=== PATIENT | male | born 1990 | race Two or more races ===

== ENCOUNTER 2021-05-01 09:21 | Emergency (ER) | payer OTHER, SELFPAY ==
[2021-05-01 09:43] VITALS: BP 135/71; PULSE 85; RESP 18; TEMP 36.3; O2SAT 98; BMI 26.4
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
== END 2021-05-01 11:07 | disposition home or self-care (01) ==
PROVIDERS: Emergency Provider Emergency Medicine
DX: S16.1XXA Strain of muscle, fascia and tendon at neck level, initial encounter (principal); V43.62XA Car passenger injured in collision with other type car in traffic accident, initial encounter; Y93.89 Activity, other specified; Y92.414 Local residential or business street as the place of occurrence of the external cause; Y99.9 Unspecified external cause status
CPT/HCPCS: 99282; 99283

== ENCOUNTER 2021-07-25 14:45 | Emergency (ER) | payer OTHER, SELFPAY ==
--- NOTE | ~2021-07-25 | US_ITS ---
EXAMINATION: US SCROTUM CLINICAL INFORMATION: Right-sided testicular pain. COMPARISON: None TECHNIQUE: A sonogram of the scrotum was performed assessing boston-scale appearance and color Doppler flow. Spectral Doppler analysis of the arterial and venous flow were performed in the testes bilaterally. FINDINGS: RIGHT: Right testicle measures 3.9 x 1.9 x 3.2 cm, volume 12.4 mL. No focal testicular parenchymal lesions are visualized. Few punctate calcifications present Spectral Doppler analysis of the arterial and venous flow is normal in the right testis. Right epididymal head is normal in size. There is trace of hydrocele and no varicocele seen. Right epididymal Doppler flow is normal. LEFT: Left testicle measures 3.6 x 1.9 x 1.9 cm, volume 6.9 mL. No focal testicular parenchymal lesions are visualized. Few punctate calcifications present Spectral Doppler analysis of the arterial and venous flow is normal in the left testis. Left epididymal head is normal in size. There is trace of hydrocele but no varicocele is seen. Left epididymal Doppler flow is normal. US/US scrotum doppler IMPRESSION: Trace of hydrocele bilaterally and mild microlithiasis
[2021-07-25 15:24] VITALS: BP 134/72; PULSE 75; RESP 16; TEMP 36.7; O2SAT 99; BMI 26.4
--- NOTE | 2021-07-25 18:57 | ED_ITS ---
HPI - General Adult General Chief complaint: Abdominal Pain Stated complaint: testicular pain Time Seen by Provider: 07/25/21 17:49 Source: patient Mode of arrival: ambulatory Limitations: no limitations History of Present Illness HPI narrative: 30-year-old male came in for evaluation of right testicular pain. Right testicular pain started 3 days ago feels like dull aching pain in the right testicle. Patient declined any trauma to the genital area, patient currently not sexually active, had a recent oral sex with a known partner declined any penile lesion or discharge. About 3 days ago patient was complai mitchel of lower abdominal pain that is resolved about 2 days ago. No fever, no chills, no nausea, no vomiting, no flank pain, no dysuria, no dark or blood in the urine. Never had these symptoms in the past. No significant abdominal pelvic history. Related Data Previous Rx's Medication Instructions Recorded ibuprofen 600 mg tablet 600 mg PO TID PRN #30 tab 05/01/21 methocarbamol 750 mg tablet 750 mg PO TID PRN #30 tab 05/01/21 Allergies Allergy/AdvReac Type Severity Reaction Status Date / Time No Known Allergies Allergy Verified 07/25/21 15:23 Review of Systems Review of Systems: All other systems are reviewed and are negative Constitutional: Reports as per HPI and Reports no additional constitutional complaints Eyes: Reports as per HPI and Reports no additional eye complaints Reports system reviewed and no additional complaints, except as documented Cardiovascular: Reports as per HPI and Reports no additional cardiovascular complaints Respiratory: Reports as per HPI and Reports no additional respiratory complaints Gastrointestinal: Reports as per HPI and Reports no additional gastrointestinal complaints Genitourinary: Reports no additional female genitourinary complaints Musculoskeletal: Reports no additional musculoskeletal complaints Skin/Breast: Reports system reviewed and no additional complaints, except as docu Psychiatric: Reports no additional psychiatric complaints Endocrine: Reports no additional endocrine complaints Hematologic/Lymphatic: Reports no additional hematologic/lymphatic complaints Allergic/Immunologic: Reports no additional allergic/immunologic complaints Reports system reviewed and no additional complaints, except as documented and Reports Abnormal speech present [facility] Social History Social History Advance Directives: No Advance Directives Information Provided: No Physical Exam ED Vital Signs: Vital Signs - 24 hr 07/25/21 15:24 Temperature 98.1 F Pulse Rate 75 Respiratory Rate 16 Blood Pressure 134/72 Pulse Oximetry 99 BMI result Body Mass Index 26.4 Vital signs have been reviewed as appeared to be correct. Blood pressure normal. Heart rate normal. Respiration rate normal. Temperature normal. Oxygen saturation normal. Appearance: Alert. Oriented X3. No acute distress. Head: Normal external exam. Normocephalic. Atraumatic. No Thomason signs noted. No raccoon eyes noted Eyes: PERRLA. EOMI. Conjunctiva and sclera normal. Eyelids normal. ENT: TM's Normal. Pharynx normal. Uvula midline. Moist mucous membranes. No trismus noted. No drooling noted. No muffled voice noted. Neck: Normal inspection. Neck supple. FROM. No adenopathy. Thyroid Normal. No meningeal signs. No neck mass noted. CVS: Normal heart rate and rhythm. Heart sound normal. No murmurs noted. Pulses normal throughout. Respiratory: No respiratory distress. Painless inspiration. Breath sounds normal. No wheezes/rales/rhonchi noted. Chest nontender. No accessory muscle u pablo noted or decreased air movement noted. Abdomen: Soft and nontender. Bowel sounds normal in all 4 quadrants. No distention noted. No organomegaly noted. No visible injury noted. exam: Normal external genitalia inspection, penis has no lesions no rash no ulcers, no urethral discharge, scrotal looks normal to inspection, no redness, no swelling, testicle was nontender to palpation, no palpable mass, intact cremasteric reflex. Back: No CVA tenderness. Full range of motion noted. Skin: Skin warm and dry. Normal skin color. Normal skin turgor. No rashes/lesions/lacerations noted. Extremities: No lower extremity edema. Extremities exhibit normal range of motion. Extremities nontender. Neuro: Oriented X 3. Cranial nerve exam: II-XII are grossly intact No motor deficit. No sensory deficit. Reflexes normal. Course Course Course Narrative: Assessment and plan. 30-year-old male came in with right testicular pain for 3 days, patient declined risk for STD with no clear symptoms of STDs, had unremarkable /abdominal exam, ultrasound shows no acute pathology. Pain has no obvious underlying etiology, patient now feels better no pain. Will discharge with the recommendation of NSAIDs. Medical Decision Making Lab Data Lab results reviewed: Yes I reviewed the patient's lab results. Result diagrams: 07/25/21 20:14 07/25/21 20:14 Labs: Lab Results 07/25/21 07/25/21 07/25/21 Range/Units 20:14 20:14 21:09 WBC 6.9 (4.8-10.8) X10*3/uL RBC 4.88 (4.60-5.80) X10*6/uL Hgb 15.5 (14.0-18.0) g/dl Hct 45.0 (42.0-52.0) % MCV 92.2 (80.0-98.0) fL MCH 31.8 (27.0-33.0) pg MCHC 34.4 (31.0-36.0) g/dl RDW 12.4 (11.0-16.0) % Plt Count 208 (160-400) X10*3/uL MPV 9.9 (9.4-12.4) fL Immature Gran % (Auto) 0.3 (0.0-0.4) % Neut % (Auto) 68.1 (45-73) % Lymph % (Auto) 23.2 (20-40) % [place] % (Auto) 7.2 (2-11) % Eos % (Auto) 0.9 (0-4) % Baso % (Auto) 0.3 (0-2) % Lymph # (Auto) 1.6 (1.2-4.9) X10*3/uL [place] # (Auto) 0.5 (0.1-1.2) X10*3/uL Eos # (Auto) 0.1 (0.0-0.4) X10*3/uL Baso # (Auto) 0.0 (0.0-0.2) X10*3/uL Abs Immat Gran (auto) 0.02 (0.00-0.03) X10*3/uL Absolute Neuts (auto) 4.7 (2.0-8.3) x10*3/uL Absolute Nucleated RBC 0.000 (0.0-0.012) X10*3/uL Nucleated RBC % (auto) 0.0 (0.0-0.2) /100WBC Sodium 136 (135-145) mmol/L Potassium 4.3 (3.3-5.1) mmol/L Chloride 102 (96-108) mmol/L Carbon Dioxide 25 (22-29) mmol/L Anion Gap 13 (12-20) BUN 15 (9-16) mg/dL Creatinine 1.05 (0.5-1.4) mg/dL Estim Creat Clear Calc 111.5 Estimated GFR > 60 Random Glucose 90 (60-115) mg/dL Calcium 10.1 (8.4-10.2) mg/dL Total Bilirubin 0.7 (0.0-1.0) mg/dL AST 18 (5-37) U/L ALT 12 (0-40) U/L Alkaline Phosphatase 97 (39-117) U/L Total Protein 8.1 H (6.5-8.0) g/dL Albumin 4.5 (3.5-5.0) g/dL Urine Color YELLOW Urine Appearance CLEAR Urine pH 6.0 (5.0-8.0) Ur Specific [place] 1.025 (1.005-1.025) Urine Protein TRACE (NEG-TRACE) MG/DL Urine Glucose (UA) NEG (NEG) MG/DL Urine Ketones >=80 (NEG) MG/DL Urine Blood NEG (NEG) Urine Nitrite NEG (NEG) Ur Leukocyte Esterase TRACE H (NEG) Urine RBC 1-4 (0) /HPF Urine WBC 1-4 (0-4) /HPF Ur Squamous Epith Cells 1+ /LPF Urine Bacteria 2+ /LPF Urine Mucus 2+ /LPF Imaging Data Scrotal ultrasound: Attestation: I personally reviewed and interpreted this imaging study as follows: Radiologist's impression: Trace of hydrocele bilaterally and mild microlithiasis. Discharge Plan Discharge Clinical Impression: Pain in testicle Patient Disposition: Home, Self-Care Instructions: Scrotal Pain (ED) Prescriptions: No Action ibuprofen 600 mg tablet 600 mg PO TID PRN (Reason: pain) Qty: 30 0RF methocarbamol 750 mg tablet 750 mg PO TID PRN (Reason: muscle spasm) Qty: 30 0RF Referrals: Isaiah Veloz MD [Physician] - Physician,None [Primary Care Provider] - Stand Alone Forms: Work/School Release
--- NOTE | 2021-07-25 19:11 | PC.NURSE ---
entered room to obtain labs, IV access, and medicate, but patient was not in the room.
[2021-07-25] MEDS: Ibuprofen 600 MG TABLET PO (19:46)
[2021-07-25 20:20] LABS: MANUAL DIFF FLAG NO
[2021-07-25 20:25] LABS: Basophils Percent Auto 0.3 % (0-2); Eosinophils Absolute Auto 0.1 X10*3/uL (0.0-0.4); Eosinophils Percent Auto 0.9 % (0-4); Hemoglobin 15.5 g/dl (14.0-18.0); Imm Gran Abs Auto 0.02 X10*3/uL (0.00-0.03); Imm Gran Pct Auto 0.3 % (0.0-0.4); Lymphocytes Absolute Auto 1.6 X10*3/uL (1.2-4.9); Lymphocytes Percent Auto 23.2 % (20-40); Mean Corpuscular HGB Conc 34.4 g/dl (31.0-36.0); Mean Corpuscular Hemoglobin 31.8 pg (27.0-33.0); Mean Corpuscular Volume 92.2 fL (80.0-98.0); Mean Platelet Volume 9.9 fL (9.4-12.4); Monocytes Absolute Auto 0.5 X10*3/uL (0.1-1.2); Monocytes Percent Auto 7.2 % (2-11); Neutrophils Absolute Auto 4.7 x10*3/uL (2.0-8.3); Neutrophils Percent Auto 68.1 % (45-73); Platelet Count 208 X10*3/uL (160-400); Red Blood Count 4.88 X10*6/uL (4.60-5.80); Red Cell Distribution Width 12.4 % (11.0-16.0); White Blood Count 6.9 X10*3/uL (4.8-10.8)
[2021-07-25 20:40] LABS: Alanine Aminotransferase 12 U/L (0-40); Albumin Level 4.5 g/dL (3.5-5.0); Alkaline Phosphatase 97 U/L (39-117); Anion Gap 13 (12-20); Aspartate Amino Transferase 18 U/L (5-37); Bilirubin Total 0.7 mg/dL (0.0-1.0); Blood Urea Nitrogen 15 mg/dL (9-16); Calcium 10.1 mg/dL (8.4-10.2); Carbon Dioxide 25 mmol/L (22-29); Chloride 102 mmol/L (96-108); Creatinine Clr Calc Pharmacy 111.5; Estimated Glomerular Filt Rate > 60; Glucose Random 90 mg/dL (60-115); Potassium 4.3 mmol/L (3.3-5.1); Sodium 136 mmol/L (135-145); Total Protein 8.1 g/dL (6.5-8.0)
[2021-07-25 21:16] LABS: Appearance Urine CLEAR; Color Urine YELLOW; Glucose Urine UA NEG (NEG); Leukocyte Esterase Urine TRACE (NEG); Nitrite Urine NEG (NEG); Specific Gravity - Urine 1.025 (1.005-1.025); Urine Blood NEG (NEG); Urine Ketones >=80 MG/DL (NEG); Urine Protein TRACE MG/DL (NEG-TRACE)
[2021-07-25 21:29] LABS: Squamous Epithelial Cell Urine 1+ /LPF
[2021-07-25 21:30] LABS: Bacteria Urine 2+ /LPF; Mucus Urine 2+ /LPF
== END 2021-07-25 22:00 | disposition home or self-care (01) ==
PROVIDERS: Emergency Provider Emergency Medicine
DX: N50.811 Right testicular pain (principal)
CPT/HCPCS: 36415; 80053; 81001; 85025; 93975; 99282; 99284

== ENCOUNTER 2024-03-23 13:18 | Emergency (ER) | payer OTHER, SELFPAY ==
[2024-03-23 14:09] VITALS: BP 107/74; PULSE 93; RESP 16; TEMP 38.3; O2SAT 96; BMI 22.2
--- NOTE | 2024-03-23 14:10 | ED.GENADULT ---
HPI - General Adult General Chief complaint: Fever Stated complaint: fever Time Seen by Provider: 03/23/24 15:43 Source: patient, RN notes reviewed and old records reviewed Mode of arrival: ambulatory Limitations: no limitations History of Present Illness ED Provider: Rashaad LOPEZ narrative: 33-year-old male presents for evaluation of fevers, cough and congestion for the last week. He reports he has been taking DayQuil and NyQuil with mild improvement in his symptoms He was concerned because he continues to have fevers He denies any chest pain, shortness of breath, abdominal pain, nausea vomiting. Denies any known sick contacts Related Data Previous Rx's ?Medication ?Instructions ?Recorded ibuprofen 600 mg tablet 600 mg PO TID PRN pain #30 tabs 05/01/21 methocarbamol 750 mg tablet 750 mg PO TID PRN muscle spasm #30 05/01/21 tabs amoxicillin 875 mg-potassium 1 tab PO Q12H #14 tabs 03/23/24 clavulanate 125 mg tablet Allergies Allergy/AdvReac Type Severity Reaction Status Date / Time No Known Allergies Allergy Verified 03/23/24 14:12 Review of Systems Constitutional: Constitutional: Reports body ache(s), Reports chills, Reports fever(s), Reports headache(s), Reports malaise and Reports weakness Eyes: Eyes: Denies blurry vision ENT: Denies vertigo, Denies dizziness, Reports headache(s) and Reports sore throat Cardiovascular: Cardiovascular: Denies chest pain and Denies dyspnea Respiratory: Respiratory: Reports cough and Denies dyspnea Gastrointestinal: Gastrointestinal: Denies abdominal pain, Denies nausea and Denies vomiting Musculoskeletal: Musculoskeletal: Denies back pain Integumentary/Breasts: Skin/Breast: Denies rash Neurologic: Denies vertigo, Denies dizziness, Reports headache(s) and Reports weakness PMFSH Social History Social History Advance Directives: No Advance Directives Information Provided: Yes Physical Exam ED Vital Signs: Vital Signs - 24 hr 03/23/24 14:09 03/23/24 15:44 Temperature 100.9 F H 99.0 F Pulse Rate 93 Respiratory Rate 16 Blood Pressure 107/74 Pulse Oximetry 96 Oxygen Delivery Method Room Air BMI result Body Mass Index 22.2 Const General: healthy appearing, comfortable, no acute distress, alert and awake Nutritional Appearance: well nourished Orientation/consciousness: patient oriented x3 HENMT Other: Mildly erythematous oropharynx Head: Yes normocephalic and Yes atraumatic Eyes Eyelids: Yes eyelids normal Conjunctivae: conjunctivae normal Sclerae: sclerae normal Corneas: corneas normal Pupils: Equal, round and reactive pupils present EOM: EOMs intact bilaterally Neck Neck: Yes full ROM Resp Effort & Inspection: normal respiratory effort, able to speak in complete sentences, no audible wheezes and not labored Auscultation: clear to auscultation bilaterally Cardio Rate: regular rate Rhythm: regular rhythm GI Inspection: No distended Palpation (GI): Soft to palpation, not firm, nontender, no guarding and not rigid Skin General skin exam: elasticity normal Neuro General: patient oriented x3 Cranial nerves: Yes Equal, round and reactive pupils present and Yes Bilaterally intact EOM present Cognition (Neuro): normal cognition Extrem Other: Moving all extremities well without any obvious deformities Course Course Course Narrative: RME, this is a rapid medical exam performed by Johnny Neil please refer to primary provider for complete H&P- 33-year-old male presents for evaluation of body aches and fevers. Symptoms started 4 days ago. plan for viral swabs Medications Administered Discontinued Medications Generic Name Dose Route Start Last Admin Trade Name Freq PRN Reason Stop Dose Admin Ibuprofen 600 mg 03/23/24 14:13 03/23/24 14:16 Ibuprofen 600 Mg Tablet PO 03/23/24 14:14 600 mg ONCE ONE Administration Medical Decision Making Medical Decision Making [facility] Narrative: 33-year-old male presents for evaluation of flu-like symptoms. He was febrile to 100.9, this improved with ibuprofen. He tested positive for influenza a as well as strep pharyngitis. He is outside the window for Tamiflu treatment, we will treat his strep with Augmentin. Differential Diagnosis Differential Diagnoses: The differential diagnosis associated with the presentation includes Influenza COVID-19 Strep pharyngitis Upper respiratory infection Lab Data Labs: Lab Results 03/23/24 Range/Units 14:36 Influenza Type A (PCR) POSITIVE A (Negative) Influenza Type B (PCR) NEGATIVE (Negative) RSV RNA Qual (PCR) NEGATIVE (Negative) SARS-CoV-2 RNA (RT-PCR) NEGATIVE (Negative) S. pyogenes GrpA CIRA Positive A (Negative) Discharge Plan Discharge Clinical Impression: Influenza, Strep pharyngitis Patient Disposition: Home, Self-Care Instructions: Strep Throat (ED), Influenza (ED) Additional Instructions: You tested positive for influenza a as well as strep throat. For the flu, he just use Motrin and Tylenol for the fevers and body aches. Take Augmentin twice daily for the next 7 days for strep throat. I recommend changing your toothbrush after you finish her last dose of antibiotics Prescriptions: New amoxicillin-pot clavulanate 875-125 mg tablet 1 tab PO Q12H Qty: 14 0RF No Action ibuprofen 600 mg tablet 600 mg PO TID PRN (Reason: pain) Qty: 30 0RF methocarbamol 750 mg tablet 750 mg PO TID PRN (Reason: muscle spasm) Qty: 30 0RF Stand Alone Forms: Work/School Release Discharge Date/Time: 03/23/24 15:56 Print Language: Bulgarian
[2024-03-23] MEDS: Ibuprofen 600 MG TABLET PO (14:16)
[2024-03-23 15:10] LABS: IDNOW Serial# 08D9AD1C; Strep A Nucleic Acid Positive (Negative)
[2024-03-23 15:34] LABS: Influenza A PCR POSITIVE (Negative); Influenza B PCR NEGATIVE (Negative); Resp Syncy Virus RNA Qual PCR NEGATIVE (Negative); SARS COV2 PCR INHOUSE NEGATIVE (Negative)
[2024-03-23 15:44] VITALS: TEMP 37.2
== END 2024-03-23 15:56 | disposition home or self-care (01) ==
PROVIDERS: Physician Assistant; Emergency Provider Emergency Medicine; PCP Family Medicine
DX: J10.1 Influenza due to other identified influenza virus with other respiratory manifestations (principal); J02.0 Streptococcal pharyngitis; R05.9 Cough, unspecified; R09.89 Other specified symptoms and signs involving the circulatory and respiratory systems; R50.9 Fever, unspecified
CPT/HCPCS: 0241U; 87651; 99283